=== PATIENT | male | born 1985 | race African-American/Black ===

== ENCOUNTER 2023-09-04 12:18 | Emergency (ER) | payer BC, SELFPAY ==
[2023-09-04 12:28] VITALS: BP 143/96
--- NOTE | 2023-09-04 13:57 | ED.GENMED ---
History of Present Illness
General
Chief Complaint: Dizziness
Time Seen by Provider: 09/04/23 13:19
Travel History
Have you had any contact with someone who has COVID-19?: No
Do you have any symptoms of coronavirus? Fever > 100 degrees, chills, cough, shortness of breath, sore throat, loss of taste or smell, muscle aches, or headache?: No
History of Present Illness
History of Present Illness:
38-year-old male presents the emergency department for evaluation of generalized fatigue and weakness ongoing for the past several days. He states 5 to 6 days ago he developed a 'stomach bug' with vomiting and diarrhea. Since that time he is felt
fatigued. He is also particular concerned that he feels as though he cannot achieve an erection for the past few days. Denies any fevers, night sweats, chest pain, shortness of breath.
Past History
Past History
ED Past Medical History: None
ED Past Surgical History: None
Social History
Tobacco: Non-smoker
Alcohol: None
Drug: None
Review of Systems
Review of Systems
Allergies reviewed?: Yes
All Other Systems: ROS reviewed and negative except as documented in HPI and ROS
Phy Exam
Physical Exam
Physical Exam:
GEN: Well appearing, NAD, WDWN
HEENT: Oral mucosa moist, no scleral icterus
Cardiac: Regular rate and rhythm, no murmurs
Lung: No respiratory distress, no tachypnea, lungs clear to auscultation bilaterally
Abdomen: Soft, nontender
MSK: No gross deformity or injuries
Skin: Good color, no pallor or jaundice, no rashes
Neuro: AO x3, moves all extremities freely
Psych: Calm, cooperative
Course
Orders/Labs/Results
Orders:
Orders
09/04/23 13:56
0.9% Sodium Chloride 1000 ml [Nss] 1,000 ml IV BOLUS
09/04/23 14:34
Complete Blood Count/With Diff Urgent
Comprehensive Metabolic Panel Urgent
Manual Differential Urgent
Abnormal Lab Results
09/04/23
14:34
WBC 4.7 L 10^3/uL
(4.8-10.8)
MPV 10.9 H fL
(7.4-10.4)
Abs Neuts (Manual) 1.2 L 10^3/uL
(1.4-6.5)
Segmented Neutrophils 27 L %
(42-75)
Lymphocytes (Manual) 60 H %
(20-51)
09/04/23 14:34
09/04/23 14:34
Vital Signs
Initial and Last Documented VS:
Initial Vital Signs
Temp Pulse Resp BP Pulse Ox
98.7 F 105 16 143/96 98
09/04/23 12:28 09/04/23 12:28 09/04/23 12:28 09/04/23 12:28 09/04/23 12:28
Last Documented Vital Signs
Temp Pulse Resp BP Pulse Ox
98.7 F 78 19 123/89 99
09/04/23 12:28 09/04/23 16:06 09/04/23 16:06 09/04/23 16:06 09/04/23 16:06
MDM/Problems Addressed
MDM/Problems Addressed:
, No indication for imagingPatient peers clinically well. Labs are reassuring. Mild leukopenia is likely on the basis of postviral syndrome. Given 1 L normal saline with improvement in symptoms. Discharged in stable condition
*Critical Care Note
Total Time (30-74mins, 75-104mins- exclusive of procedures): Not Applicable
ED Attending Note
-
Portions of this chart may have been created with voice recognition software.� Occasional wrong word or��sound alike� substitutions may have occurred due to the inherent limitations of voice recognition software.
Discharge Plan
Departure
Patient Disposition: Home (Routine Discharge)
Date of Disposition: 09/04/23
Time of Disposition: 15:47
Patient with high blood pressure during this ER visit?: No
Discharge Problem:
Fatigue
Instructions: Fatigue (DC)
Referrals:
NONE,* [Family Provider] -
Interventions
Interventions:
*Risk Screen - Suicide Last Done: 09/04/23 12:28
*General Assessment Last Done: 09/04/23 12:28
*Neglect/Abuse Screening Last Done: 09/04/23 12:28
ED- Fall Risk Assessment Last Done: 09/04/23 16:06
*ED COVID-19 Vaccine History Last Done: 09/04/23 14:22
*Nursing Disposition Last Done: 09/04/23 16:06
ED- Neurological Assessment Last Done: 09/04/23 14:24
ED- Cardiac Assessment Last Done: 09/04/23 16:06
ED Swallowing Screen Last Done: 09/04/23 14:35
Discharge Date and Time
Discharge Date/Time: 09/04/23 16:07
[2023-09-04 14:21] VITALS: BMI 29.7
[2023-09-04 14:36] VITALS: BP 132/90
[2023-09-04] MEDS: NSS 1000 IV (14:38)
[2023-09-04 14:43] LABS: Hematocrit 44.1 % (39.0-52.0); Hemoglobin 15.1 g/dL (13.0-18.0); Mean Corp Hgb Conc. 34.2 g/dL (33.0-37.0); Mean Corpuscular Hgb 28.3 pg (27.0-31.0); Mean Corpuscular Volume 82.7 fL (80.0-94.0); Mean Platelet Volume 10.9 fL (7.4-10.4); Platelet Count 187 10^3/uL (130-400); Red Blood Cell Count 5.33 10^6/uL (4.70-6.10); Red Cell Dist. Width 12.9 % (11.5-14.5); White Blood Cell Count 4.7 10^3/uL (4.8-10.8)
[2023-09-04 14:56] LABS: ALT (SGPT) 29 U/L (0-50); AST (SGOT) 32 U/L (17-59); Albumin 4.5 g/dl (3.5-5.0); Alkaline Phosphatase 42 U/L (38-126); Blood Urea Nitrogen 12 mg/dl (9-20); Calcium 9.8 mg/dl (8.4-10.2); Carbon Dioxide 29 mmol/L (22-30); Chloride 99 mmol/L (98-107); Estimated Creatinine Clearance 92 ml/min; Glucose 96 mg/dl (70-99); Potassium 4.3 mmol/L (3.5-5.1); Sodium 137 mmol/L (135-145); Total Bilirubin 0.4 mg/dl (0.2-1.3); eGFR > 60.00
[2023-09-04 15:00] VITALS: BP 129/86
[2023-09-04 15:04] LABS: Absolute Neutrophils -Man Diff 1.2 10^3/uL (1.4-6.5); Atypical Lymphocytes 6 %; Band Neutrophils 0 % (0-3); Eosinophils 2 % (0-6); Lymphocytes 60 % (20-51); Monocytes 4 % (2-9); Normal RBC Morphology Yes; Platelets Checked Yes; Segmented Neutrophils 27 % (42-75); Total Cells Counted 100
[2023-09-04 16:00] VITALS: BP 123/89
[2023-09-04 16:06] VITALS: BP 123/89
== END 2023-09-04 16:07 | disposition home or self-care (01) ==
LOC: EMR 12:18
PROVIDERS: Physician Assistant; EMERGENCY PHYSICIAN Emergency Medicine
DX: R53.83 Other fatigue (principal); R42 Dizziness and giddiness; R19.7 Diarrhea, unspecified
CPT/HCPCS: 99284; 96360; 80053; 85025